=== PATIENT | male | born 1970 | race American Indian/Alaskan Native ===

== ENCOUNTER 2025-01-15 10:28 | Outpatient (CLI) | payer BC, MEDICAID, SELFPAY ==
--- NOTE | 2025-01-15 12:15 | MR_ITS ---
WS: [id number] MRI LUMBAR SPINE NONCONTRAST HISTORY: M21.372 - Foot drop, left foot, LEFT low back pain radiating down LEFT leg. COMPARISON: None available. TECHNIQUE: Sagittal and axial multisequence imaging is submitted. Chronic Schmorl's nodes defects at T12, L1 and L4. No acute fractures or marrow edema. There is also mild anterior wedging of T12, L1 and L4. L5 anterolisthesis by 5 mm. Remaining alignment is normal. Advanced degenerative disc space narrowing at L5-S1 with fatty changes in the endplates. Conus terminates normally at L1-2 disc level. T12-L1: Shallow LEFT foraminal disc protrusion. Mild facet arthritis. L1-L2: Normal. L2-L3: Mild annular disc bulging with ligamentum flavum and facet arthritis. Very mild foraminal narrowing. L3-L4: Mild annular disc bulge with a central annular fissure. Very shallow bilateral foraminal disc protrusions with osteophytes. Bilateral facet arthritis. Mild central, subarticular recess and foraminal stenosis. There is mild disc encroachment upon the traversing L4 nerve roots. L4-L5: Mild annular disc bulging with central disc protrusion. Disc protrusion extends into the subarticular recesses. Mild to moderate central, bilateral subarticular recess and moderate foraminal stenosis, LEFT greater than RIGHT. Moderate bilateral facet arthritis and ligamentum flavum hypertrophy. L5-S1: Annular disc bulging with bilateral facet arthritis. There is minimal disc encroachment upon the S1 nerve roots. Foraminal disc osteophytes resulting in moderate stenosis. Mild disc osteophyte contact on the exiting L5 nerve roots. RIGHT renal cortical cyst 8 mm. MR/MR lumbar spine wo con* [id number] IMPRESSION: 1. Grade 1 anterolisthesis of L5 with severe degenerative disc disease at L5-S 1. 2. Chronic Schmorl's nodes with anterior wedging T12, L1 and L4. 3. L4-5: Mild to moderate central, bilateral subarticular recess and moderate foraminal stenosis, LEFT greater than RIGHT. 4. L5-S1: Mild disc encroachment upon the S1 nerve roots. Moderate bilateral f oraminal stenosis due to disc osteophyte disease. There is disc osteophyte cont acting the exiting L5 nerve roots. 5. Mild foraminal narrowing at L2-3. 6. L3-4: Central annular fissure with shallow bilateral foraminal disc protrus ions. Mild central, subarticular recess and foraminal stenosis.
== END 2025-01-15 10:29 | disposition home or self-care (01) ==
PROVIDERS: PCP Registered Nurse; Visit Provider Nurse Practitioner Family
DX: M21.372 Foot drop, left foot (principal); M51.369 Other intervertebral disc degeneration, lumbar region without mention of lumbar back pain or lower extremity pain; M54.16 Radiculopathy, lumbar region; M48.54XA Collapsed vertebra, not elsewhere classified, thoracic region, initial encounter for fracture; M48.56XA Collapsed vertebra, not elsewhere classified, lumbar region, initial encounter for fracture; M51.379 Other intervertebral disc degeneration, lumbosacral region without mention of lumbar back pain or lower extremity pain; M51.44 Schmorl's nodes, thoracic region; M51.46 Schmorl's nodes, lumbar region; M48.061 Spinal stenosis, lumbar region without neurogenic claudication; M48.07 Spinal stenosis, lumbosacral region; M25.78 Osteophyte, vertebrae; M51.26 Other intervertebral disc displacement, lumbar region; R93.7 Abnormal findings on diagnostic imaging of other parts of musculoskeletal system; M47.895 Other spondylosis, thoracolumbar region; M24.28 Disorder of ligament, vertebrae; M47.896 Other spondylosis, lumbar region; M47.897 Other spondylosis, lumbosacral region; N28.1 Cyst of kidney, acquired
CPT/HCPCS: 72148

== ENCOUNTER → 2025-01-23 12:37 | Outpatient (BNVA) | payer BC, MEDICAID, SELFPAY | PROVIDERS: PCP Registered Nurse; Visit Provider Orthopaedic Surgery | DX: S32.010A Wedge compression fracture of first lumbar vertebra, initial encounter for closed fracture (principal); X58.XXXA Exposure to other specified factors, initial encounter | CPT/HCPCS: 72100 ==

== ENCOUNTER → 2025-01-30 09:40 | Outpatient (BNVA) | payer BC, MEDICAID, SELFPAY | PROVIDERS: PCP Nurse Practitioner Family; Visit Provider Nurse Practitioner Family | DX: M54.16 Radiculopathy, lumbar region (principal) | CPT/HCPCS: 36415; 80053 ==

== ENCOUNTER 2025-01-31 15:02 | Outpatient (CLI) | payer BC, MEDICAID, SELFPAY ==
--- NOTE | 2025-01-31 16:00 | MR_ITS ---
WS: [id number] MRI BRAIN WITH AND WITHOUT CONTRAST HISTORY: H54.3 - Unqualified visual loss, both eyes COMPARISON: None available. TECHNIQUE: Multiplanar imaging performed through the brain with MultiHance 20 ml's IV. No acute infarcts are seen. Alvarado-white matter differentiation is well preserved. There is several scattered T2 and FLAIR signal hyperintense intensities throughout the white matter. No lacunar infarcts or larger infarct. Cerebellum is intact. No small vessel disease noted within the stefano. No susceptibility artifacts or prior lacunar infarcts. Ventricles and extra-axial spaces are normal. Clivus and pituitary gland are normal. Visualized posterior fossa and brainstem are also normal. Postcontrast images are negative for masses or vascular malformations. Dural venous sinuses are normal. Paranasal sinuses: Small caliber maxillary sinuses, RIGHT greater than LEFT. These may be hypoplastic. No air-fluid levels. Mastoid air cells: Normal. Calvarium and scalp: Normal. MR/MR head wo/w con [id number] IMPRESSION: 1. No acute infarct. No large territory prior infarct or hemorrhage. 2. No enhancing masses or vascular malformations. 3. Dural venous sinuses are well-opacified. 4. Mild scattered T2 and FLAIR signal hyperintensities. These can be seen with microangiopathic disease, migraines, hypertension and smoking history. 5. Mildly hypoplastic maxillary sinuses, chronic.
[2025-01-31] MEDS: gadobenate dimeglumine 20 mL vial IV (16:19)
== END 2025-01-31 15:03 | disposition home or self-care (01) ==
PROVIDERS: PCP Nurse Practitioner Family; Visit Provider Family Medicine
DX: H54.3 Unqualified visual loss, both eyes (principal); H53.452 Other localized visual field defect, left eye; R93.0 Abnormal findings on diagnostic imaging of skull and head, not elsewhere classified; J34.89 Other specified disorders of nose and nasal sinuses
CPT/HCPCS: 70553

== ENCOUNTER 2025-03-04 05:31 | Day surgery (SDC) | payer BC, MEDICAID, SELFPAY ==
[2025-03-04 06:02] VITALS: BP 119/74; PULSE 63; RESP 18; TEMP 36.3; O2SAT 97; BMI 27.4
--- NOTE | 2025-03-04 06:58 | P.HP_ITS ---
Same Day Surgery H&P Indication for Procedure/HPI DATE OF PROCEDURE: March 04, 2025 CHIEF COMPLAINT/INDICATIONFOR SURGICAL PROCEDURE: screening colonoscopy PREOP DIAGNOSIS: screening colonoscopy PLANNED PROCEDURE: Operation Date: 03/04/25 07:15 Proposed Procedures p Colonoscopy 60724 G0121 Z21.11(Not Applicable) - Eliu Mendoza MD Medications/Allergies* Allergies/Adverse Reactions Allergy/AdvReac Type Severity Reaction Status Date / Time No Known Allergies Allergy Verified 02/18/25 14:57 Pertinent History/Comorbid Conditions* Medical History (Updated 01/30/25 @ 14:24 by Eliu Mendoza MD) Psychiatric care Surgical History (Updated 12/16/24 @ 14:10 by RODNEY Mera) History of hernia repair approx 2004 Social History Smoking and tobacco/nicotine status: current every day tobacco/nicotine user e- cigarettes E-Cigarette Details: e-cigarette Quit status (tobacco/nicotine): has quit using Former quit date comment: 09/2024 Alcohol intake: never Substance/Drug Use: never Adopted: No Caregiver/support person: No Lives independently: No Household members: spouse service: No Current occupational status: unemployed Sexually active: Yes Do you think of yourself as: Straight/Heterosexual Current gender identity: Male Pertinent Exam Findings alert, oriented x 3, clear to auscultation bilaterally, regular rate & rhythm and procedure specific exam findings abdomen soft, nt,nd Recommendations Risks and benefits of procedure reviewed Surgery/Procedure today Coding Level of Care Code Acute Code for Chg Fwd
--- NOTE | 2025-03-04 07:01 | P.ANESASSM_ITS ---
Pre-Anesthetic Assessment Height/Weight: Height 1.8 m Weight 89.358 kg Temp Pulse Resp BP Pulse Ox O2 Del Method 97.4 F L 63 18 119/74 97 Room Air 03/04/25 06:02 03/04/25 06:02 03/04/25 06:02 03/04/25 06:02 03/04/25 06:02 03/04/25 06:02 Preop Diagnosis: screening colonoscopy Operation Date: 03/04/25 07:15 Proposed Procedures p Colonoscopy 25411 G0121 Z21.11(Not Applicable) - Eliu Mendoza MD Familial anesthetic complications: none Was Beta Domo taken within 24 hours: N/A Was Clonidine taken within 24 hours: N/A Last intake: Intake Last Liquid Date 03/03/25 Last Liquid Time 22:00 Last Solid Date 03/03/25 Last Solid Time 06:30 Social No alcohol and No tobacco Vapes nicotine daily Exam alert, oriented x 3, clear to auscultation bilaterally and regular rate & rhythm Airway Submandibular: within normal limits Cervical ROM: within normal limits Mallampati: Class II Dentition: false History/ROS No significant history except as noted and No significant complaints Pulmonary None reported CV/HEM None reported None reported Hepatic None reported GI None reported Metabolic None reported Musc/skel None reported Neuropsych None reported Anesthetic Plan ASA status: 2 Anesthesia: MAC Risk of > 500 ml blood loss (7ml/kg in children): No Medications/Allergies Home Medications ?Medication ?Instructions ?Recorded ?Confirmed ?Last Taken ?Type acetaminophen 650 mg 650 mg PO Q8H PRN pain #90 t abs 01/30/25 02/27/25 03/01/25 Rx tablet,extended release ibuprofen 800 mg tablet 800 mg PO BID PRN pain #60 t abs 01/30/25 02/27/25 03/01/25 Rx cyclobenzaprine 10 mg tablet 10 mg PO TID PRN muscle s pasm #90 02/18/25 02/27/25 03/01/25 Rx tabs topiramate 25 mg tablet (Topamax) 25 mg PO BID PRN ner ve pain #60 02/18/25 02/27/25 03/01/25 Rx tabs Allergies Allergy/AdvReac Type Severity Reaction Status Date / Time No Known Allergies Allergy Verified 02/18/25 14:57 PFSH Anesthesia Medical History Psychiatric care Surgical History History of hernia repair approx 2004 Social History Smoking and tobacco/nicotine status: current every day tobacco/nicotine user e- cigarettes E-Cigarette Details: e-cigarette Quit status (tobacco/nicotine): has quit using Former quit date comment: 09/2024 Alcohol intake: never Substance/Drug Use: never Adopted: No Caregiver/support person: No Lives independently: No Household members: spouse service: No Current occupational status: unemployed Sexually active: Yes Do you think of yourself as: Straight/Heterosexual Current gender identity: Male
[2025-03-04] MEDS: sodium chloride 0.9% 1,000 ML 15 ML IV (07:07)
[2025-03-04 07:43] VITALS: BP 124/77; PULSE 65; RESP 18; TEMP 36.2; O2SAT 95
[2025-03-04 07:54] VITALS: BP 145/95; PULSE 64; RESP 18; TEMP 36.2; O2SAT 95
--- NOTE | 2025-03-04 08:10 | ANE.PACU2 ---
Inpatient post-anesthesia follow up: Airway intact: Yes Vital signs: Temperature 97.2 F Pulse Rate 64 Respiratory Rate 18 Blood Pressure 145/95 Pulse Oximetry 95 Oxygen Delivery Me thod Room Air Oxygen Flow Rate Fraction of Inspir ed Oxygen Hydration adequate: Yes Nausea and vomiting: No Pain level: 1 Mental status: Baseline
== END 2025-03-04 08:12 | disposition home or self-care (01) ==
PROVIDERS: PCP Nurse Practitioner Family; Visit Provider Student in an Organized Health Care Education/Training Program
PROC: 0DJD8ZZ Inspection of Lower Intestinal Tract, Via Natural or Artificial Opening Endoscopic (ICD-10-PCS; CPT 45378; principal; 2025-03-04 07:15)
DX: Z12.11 Encounter for screening for malignant neoplasm of colon (principal); K63.5 Polyp of colon; F17.290 Nicotine dependence, other tobacco product, uncomplicated
CPT/HCPCS: 45385; 88305; J2704; J3490; J7030; J9999